=== PATIENT | female | born 1995 | race African-American/Black ===

== ENCOUNTER 2017-04-18 11:13 | Emergency (ER) | payer OTHER ==
[~2017-04-18] VITALS: Ht 167.6 cm; Wt 120.5 kg
[~2017-04-18 11:13] MED LIST: CEFTIN500 MG PO; SINGULAIR; ZYRTEC 10MG10 MG PO
[2017-04-18 11:14] VITALS: TEMP 99
[2017-04-18] MEDS ORDERED: PRENATAL MVI (11:18)
[2017-04-18 11:59] LABS: BASO % 0.3 % (0.0-2.0); EOS # 0.1 (0.0-0.7); EOS % 1.2 % (0-4.0); GRAN # 6.4 (1.4-6.5); GRAN % 73.8 % (42.2-75.2); LYMPH # 1.4 (1.2-3.4); LYMPH % 16.5 % (20.0-51.0); MEAN CELL VOLUME 84 fl (80.0-100.0); MEAN CORPUSCULAR HGB CONC 33 g/dl (33.0-37.0); MEAN PLATELET VOLUME 10.7 fl (7.4-10.4); MONO # 0.7 (0.1-0.6); MONO % 7.9 % (1.7-9.3); PLATELET COUNT 198 K/mm3 (130-400); RED BLOOD COUNT 3.76 M/mm3 (4.10-5.30); WHITE BLOOD COUNT 8.7 K/mm3 (4.8-10.8)
[2017-04-18 12:02] LABS: HEMATOCRIT 31.7 % (37.0-47.0); HEMOGLOBIN 10.5 g/dl (12.5-16.0); MEAN CORPUSCULAR HEMOGLOBIN 28 pg (27.0-31.0)
[2017-04-18 12:04] LABS: ADJUSTED CALCIUM 9.5 mg/dL (8.4-10.2); ALBUMIN 3.5 gm/dL (3.5-5.0); BILIRUBIN,TOTAL 0.3 mg/dL (0.0-1.0); C-REACTIVE PROTEIN 3.8 mg/dL (0.0-0.9); CALCIUM 9.1 mg/dL (8.4-10.2); CREATININE, serum 0.53 mg/dL (0.52-1.25); POTASSIUM 3.6 mmol/L (3.4-5.0); TOTAL PROTEIN 6.8 gm/dL (6.4-8.2)
[2017-04-18 12:19] LABS: COLLECTION METHOD CLEAN CATCH
[2017-04-18 12:44] LABS: PH 8 (5-8); URINE APPEARANCE Hazy; URINE BACTERIA Rare /hpf; URINE BILIRUBIN Negative (NEGATIVE); URINE BLOOD Negative (NEGATIVE); URINE COLOR Yellow; URINE GLUCOSE Negative (NEGATIVE); URINE KETONE Negative (NEGATIVE); URINE LEUKOCYTE ESTERASE Negative (NEGATIVE); URINE PROTEIN(semi-quant) Negative (NEGATIVE); URINE RBC 0-2 /hpf; URINE UROBILINOGEN Negative (NEGATIVE); URINE WBC 0-2 /hpf
[2017-04-18] MEDS ORDERED: AMOXICILLIN 50500 MG PO (14:39)
[2017-04-18] MEDS ORDERED: PHENERGAN 25 TA25 MG PO (14:39)
[2017-04-18 14:46] VITALS: BP 119/67; PULSE 84
== END 2017-04-18 14:49 | disposition home or self-care (01) ==
LOC: COL.ER 11:13
PROVIDERS: Emergency Medicine
DX: O21.9 Vomiting of pregnancy, unspecified (principal); O26.892 Other specified pregnancy related conditions, second trimester; R55 Syncope and collapse; Z3A.23 23 weeks gestation of pregnancy
CPT/HCPCS: J2550; J7030

== ENCOUNTER 2017-06-20 20:16 | Outpatient (CLI) | payer MEDICAID ==
[2017-06-20] VITALS (11 sets, daily range): BP systolic 113–171; BP diastolic 57–88; PULSE 93–111; TEMP 98.1
[~2017-06-20] VITALS: Ht 165.1 cm; Wt 129.1 kg
[~2017-06-20 20:16] MED LIST changes: +AMOXICILLIN 50500 MG PO; +PHENERGAN 25 TA25 MG PO; +PRENATAL MVI
[2017-06-20 21:01] LABS: COLLECTION METHOD CATHETER
[2017-06-20 21:04] LABS: BASO % 0.3 % (0.0-2.0); EOS # 0.1 (0.0-0.7); EOS % 0.5 % (0-4.0); GRAN # 8.6 (1.4-6.5); LYMPH # 2.4 (1.2-3.4); LYMPH % 20.5 % (20.0-51.0); MEAN CELL VOLUME 83 fl (80.0-100.0); MEAN CORPUSCULAR HGB CONC 33 g/dl (33.0-37.0); MEAN PLATELET VOLUME 10.5 fl (7.4-10.4); MONO # 0.6 (0.1-0.6); MONO % 5.3 % (1.7-9.3); PLATELET COUNT 206 K/mm3 (130-400); RED BLOOD COUNT 3.65 M/mm3 (4.10-5.30); REDCELL DISTRIBUTION WIDTH-CV 13.8 % (11.5-14.5)
[2017-06-20 21:06] LABS: HEMATOCRIT 30.4 % (37.0-47.0); HEMOGLOBIN 10.1 g/dl (12.5-16.0); MEAN CORPUSCULAR HEMOGLOBIN 28 pg (27.0-31.0)
[2017-06-20 21:10] LABS: PH 6 (5-8); URINE APPEARANCE Cloudy; URINE BILIRUBIN Negative (NEGATIVE); URINE BLOOD Negative (NEGATIVE); URINE COLOR Yellow; URINE GLUCOSE Negative (NEGATIVE); URINE KETONE Negative (NEGATIVE); URINE LEUKOCYTE ESTERASE Negative (NEGATIVE); URINE NITRATE Negative (NEGATIVE); URINE PROTEIN(semi-quant) Negative (NEGATIVE); URINE UROBILINOGEN Negative (NEGATIVE)
[2017-06-20 21:13] LABS: ALBUMIN 3.5 gm/dL (3.5-5.0); BILIRUBIN,TOTAL 0.2 mg/dL (0.0-1.0); CALCIUM 9.5 mg/dL (8.4-10.2); CREATININE, serum 0.57 mg/dL (0.52-1.25); POTASSIUM 3.5 mmol/L (3.4-5.0); TOTAL PROTEIN 6.7 gm/dL (6.4-8.2)
[2017-06-20 21:26] LABS: AMORPHOUS CRYSTAL Present /uL
[2017-06-20 21:29] LABS: MUCOUS Present /lpf
[2017-06-20 21:31] LABS: URINE BACTERIA Moderate /hpf
[2017-06-20] MEDS ORDERED: MACROBID 1100 MG/CAP PO (21:50)
== END 2017-06-20 22:30 | disposition home or self-care (01) ==
LOC: LDRO 20:16
PROVIDERS: Obstetrics & Gynecology
DX: O99.89 Other specified diseases and conditions complicating pregnancy, childbirth and the puerperium (principal); M54.9 Dorsalgia, unspecified; Z3A.31 31 weeks gestation of pregnancy

== ENCOUNTER 2017-07-19 08:45 | Inpatient (IN) | payer MEDICAID ==
[2017-07-19] VITALS (15 sets, daily range): BP systolic 121–183; BP diastolic 55–91; PULSE 82–112; TEMP 97.9–98.5
[~2017-07-19] VITALS: Ht 165.1 cm; Wt 132.5 kg
[~2017-07-19 08:45] MED LIST changes: +MACROBID 1100 MG/CAP PO
[2017-07-19 10:10] LABS: COLLECTION METHOD CLEAN CATCH
[2017-07-19 10:24] LABS: AMORPHOUS CRYSTAL Present /uL; MUCOUS Present /lpf; PH 7 (5-8); URINE APPEARANCE Cloudy; URINE BACTERIA Rare /hpf; URINE BILIRUBIN Negative (NEGATIVE); URINE BLOOD Negative (NEGATIVE); URINE COLOR Yellow; URINE GLUCOSE Negative (NEGATIVE); URINE KETONE Negative (NEGATIVE); URINE LEUKOCYTE ESTERASE Trace (NEGATIVE); URINE NITRATE Negative (NEGATIVE); URINE PROTEIN(semi-quant) Negative (NEGATIVE); URINE RBC None Seen /hpf; URINE UROBILINOGEN Negative (NEGATIVE)
[2017-07-19 12:04] LABS: BASO % 0.3 % (0.0-2.0); EOS # 0.1 (0.0-0.7); EOS % 0.4 % (0-4.0); GRAN # 10.3 (1.4-6.5); GRAN % 79.5 % (42.2-75.2); LYMPH % 15.2 % (20.0-51.0); MEAN CELL VOLUME 82 fl (80.0-100.0); MEAN CORPUSCULAR HGB CONC 33 g/dl (33.0-37.0); MEAN PLATELET VOLUME 10.9 fl (7.4-10.4); MONO # 0.5 (0.1-0.6); MONO % 4.1 % (1.7-9.3); PLATELET COUNT 200 K/mm3 (130-400); RED BLOOD COUNT 3.91 M/mm3 (4.10-5.30); REDCELL DISTRIBUTION WIDTH-CV 14.2 % (11.5-14.5)
[2017-07-19 12:05] LABS: HEMATOCRIT 32.2 % (37.0-47.0); HEMOGLOBIN 10.6 g/dl (12.5-16.0); MEAN CORPUSCULAR HEMOGLOBIN 27 pg (27.0-31.0)
[2017-07-19 12:20] LABS: ALBUMIN 3.5 gm/dL (3.5-5.0); BILIRUBIN,TOTAL 0.3 mg/dL (0.0-1.0); CALCIUM 10.1 mg/dL (8.4-10.2); CREATININE, serum 0.49 mg/dL (0.52-1.25)
[2017-07-19] MEDS ORDERED: FLEXERIL 1010 MG/TAB PO (14:32)
[2017-07-19] MEDS ORDERED: TRANDATE 200MG200 MG PO (14:33)
[2017-07-19 19:13] LABS: COLLECTION METHOD CLEAN CATCH
[2017-07-19 19:21] LABS: MUCOUS Present /lpf; PH 6 (5-8); URINE APPEARANCE Cloudy; URINE BACTERIA Rare /hpf; URINE BILIRUBIN Negative (NEGATIVE); URINE BLOOD Negative (NEGATIVE); URINE COLOR Yellow; URINE GLUCOSE Negative (NEGATIVE); URINE KETONE 2+ (NEGATIVE); URINE LEUKOCYTE ESTERASE 1+ (NEGATIVE); URINE NITRATE Negative (NEGATIVE); URINE PROTEIN(semi-quant) Negative (NEGATIVE); URINE RBC 0-2 /hpf; URINE UROBILINOGEN Negative (NEGATIVE)
[2017-07-20] VITALS (21 sets, daily range): BP systolic 90–146; BP diastolic 39–80; PULSE 93–119; TEMP 37.3
[2017-07-20 06:19] LABS: COLLECTION METHOD CLEAN CATCH
[2017-07-20 06:26] LABS: MUCOUS Present /lpf; PH 5 (5-8); URINE APPEARANCE Cloudy; URINE BACTERIA Rare /hpf; URINE BILIRUBIN Negative (NEGATIVE); URINE BLOOD Negative (NEGATIVE); URINE COLOR Amber; URINE GLUCOSE Negative (NEGATIVE); URINE KETONE 1+ (NEGATIVE); URINE LEUKOCYTE ESTERASE 1+ (NEGATIVE); URINE NITRATE Negative (NEGATIVE); URINE PROTEIN(semi-quant) 1+ (NEGATIVE); URINE RBC 0-2 /hpf; URINE UROBILINOGEN Negative (NEGATIVE)
[2017-07-20 06:43] LABS: BASO % 0.2 % (0.0-2.0); EOS % 0.1 % (0-4.0); GRAN # 9.9 (1.4-6.5); GRAN % 84.5 % (42.2-75.2); LYMPH # 1.3 (1.2-3.4); MEAN CELL VOLUME 82 fl (80.0-100.0); MEAN CORPUSCULAR HGB CONC 33 g/dl (33.0-37.0); MEAN PLATELET VOLUME 10.9 fl (7.4-10.4); MONO # 0.5 (0.1-0.6); MONO % 3.9 % (1.7-9.3); PLATELET COUNT 199 K/mm3 (130-400); RED BLOOD COUNT 3.87 M/mm3 (4.10-5.30); REDCELL DISTRIBUTION WIDTH-CV 14.4 % (11.5-14.5)
[2017-07-20 06:44] LABS: HEMATOCRIT 31.8 % (37.0-47.0); HEMOGLOBIN 10.5 g/dl (12.5-16.0); MEAN CORPUSCULAR HEMOGLOBIN 27 pg (27.0-31.0)
[2017-07-20 07:10] LABS: ALBUMIN 3.2 gm/dL (3.5-5.0); BILIRUBIN,TOTAL 0.6 mg/dL (0.0-1.0); CALCIUM 9.2 mg/dL (8.4-10.2); CREATININE, serum 0.6 mg/dL (0.52-1.25); TOTAL PROTEIN 6.4 gm/dL (6.4-8.2)
[2017-07-20 09:55] LABS: AMYLASE 510 U/L (30-110)
[2017-07-20 10:13] LABS: LIPASE 6996 U/L (23-300)
[2017-07-21] VITALS (8 sets, daily range): BP systolic 99–143; BP diastolic 55–73; PULSE 113–122; TEMP 98.2–99.4
[2017-07-21 06:50] LABS: BASO % 0.3 % (0.0-2.0); EOS # 0.1 (0.0-0.7); EOS % 0.7 % (0-4.0); GRAN # 9.3 (1.4-6.5); GRAN % 79.8 % (42.2-75.2); LYMPH # 1.7 (1.2-3.4); LYMPH % 14.3 % (20.0-51.0); MEAN CELL VOLUME 84 fl (80.0-100.0); MEAN CORPUSCULAR HGB CONC 32 g/dl (33.0-37.0); MEAN PLATELET VOLUME 10.6 fl (7.4-10.4); MONO # 0.5 (0.1-0.6); MONO % 4.6 % (1.7-9.3); PLATELET COUNT 178 K/mm3 (130-400); RED BLOOD COUNT 3.63 M/mm3 (4.10-5.30); REDCELL DISTRIBUTION WIDTH-CV 14.3 % (11.5-14.5)
[2017-07-21 07:06] LABS: HEMATOCRIT 30.3 % (37.0-47.0); HEMOGLOBIN 9.8 g/dl (12.5-16.0); MEAN CORPUSCULAR HEMOGLOBIN 27 pg (27.0-31.0)
[2017-07-21 07:07] LABS: CALCIUM 8.4 mg/dL (8.4-10.2); CREATININE, serum 0.54 mg/dL (0.52-1.25)
[2017-07-22 04:31] VITALS: BP 135/70; PULSE 105; TEMP 98.4
[2017-07-22 07:31] LABS: BASO % 0.2 % (0.0-2.0); EOS # 0.2 (0.0-0.7); EOS % 1.2 % (0-4.0); GRAN # 10.5 (1.4-6.5); GRAN % 82.4 % (42.2-75.2); LYMPH # 1.3 (1.2-3.4); LYMPH % 10.3 % (20.0-51.0); MEAN CELL VOLUME 83 fl (80.0-100.0); MEAN CORPUSCULAR HGB CONC 33 g/dl (33.0-37.0); MEAN PLATELET VOLUME 10.8 fl (7.4-10.4); MONO # 0.7 (0.1-0.6); MONO % 5.4 % (1.7-9.3); PLATELET COUNT 189 K/mm3 (130-400); RED BLOOD COUNT 3.28 M/mm3 (4.10-5.30); REDCELL DISTRIBUTION WIDTH-CV 14.6 % (11.5-14.5)
[2017-07-22 07:32] LABS: HEMATOCRIT 27.1 % (37.0-47.0); MEAN CORPUSCULAR HEMOGLOBIN 27 pg (27.0-31.0)
[2017-07-22 07:38] LABS: CALCIUM 8.3 mg/dL (8.4-10.2); CREATININE, serum 0.6 mg/dL (0.52-1.25); MAGNESIUM 1.6 mg/dL (1.6-2.3); POTASSIUM 3.6 mmol/L (3.4-5.0)
[2017-07-22 07:41] VITALS: BP 133/63; PULSE 109; TEMP 98.7
[2017-07-22 12:30] VITALS: BP 133/65; PULSE 103; TEMP 97.8
[2017-07-22 16:25] VITALS: BP 141/73; PULSE 105; TEMP 98.3
[2017-07-22 21:30] VITALS: BP 146/82; PULSE 106; TEMP 98
[2017-07-23 00:10] LABS: CALCIUM 8.6 mg/dL (8.4-10.2); CREATININE, serum 0.64 mg/dL (0.52-1.25); POTASSIUM 3.7 mmol/L (3.4-5.0)
[2017-07-23 00:30] VITALS: BP 140/72; PULSE 108; TEMP 99.6
[2017-07-23 04:15] VITALS: BP 140/65; PULSE 107; TEMP 98.7
[2017-07-23 07:01] LABS: BASO % 0.3 % (0.0-2.0); EOS # 0.2 (0.0-0.7); EOS % 1.7 % (0-4.0); GRAN # 10.5 (1.4-6.5); GRAN % 79.4 % (42.2-75.2); LYMPH # 1.8 (1.2-3.4); LYMPH % 13.4 % (20.0-51.0); MEAN CELL VOLUME 83 fl (80.0-100.0); MEAN CORPUSCULAR HGB CONC 33 g/dl (33.0-37.0); MEAN PLATELET VOLUME 10.2 fl (7.4-10.4); MONO # 0.6 (0.1-0.6); MONO % 4.7 % (1.7-9.3); PLATELET COUNT 218 K/mm3 (130-400); RED BLOOD COUNT 3.31 M/mm3 (4.10-5.30); REDCELL DISTRIBUTION WIDTH-CV 14.5 % (11.5-14.5)
[2017-07-23 07:02] LABS: HEMATOCRIT 27.3 % (37.0-47.0); MEAN CORPUSCULAR HEMOGLOBIN 27 pg (27.0-31.0)
[2017-07-23 07:12] LABS: CALCIUM 8.5 mg/dL (8.4-10.2); CREATININE, serum 0.58 mg/dL (0.52-1.25); MAGNESIUM 1.7 mg/dL (1.6-2.3); POTASSIUM 3.7 mmol/L (3.4-5.0)
[2017-07-23 07:45] VITALS: BP 135/73; PULSE 106; TEMP 97.9
[2017-07-23 11:45] VITALS: BP 131/66; PULSE 98; TEMP 98.4
[2017-07-23 16:00] VITALS: BP 145/83; PULSE 102; TEMP 99
[2017-07-23 21:17] VITALS: BP 143/81; PULSE 99; TEMP 98.3
[2017-07-24 01:10] VITALS: BP 141/76; PULSE 101; TEMP 98.8
[2017-07-24 05:35] VITALS: BP 140/71; PULSE 101; TEMP 98.4
[2017-07-24 06:30] VITALS: BP 131/71; PULSE 94; TEMP 98.2
[2017-07-24 16:50] VITALS: BP 147/72; PULSE 97; TEMP 99
[2017-07-24 19:30] VITALS: BP 135/63; PULSE 95; TEMP 98.4
[2017-07-24 23:10] VITALS: BP 135/55; PULSE 94; TEMP 98.7
[2017-07-25 03:10] VITALS: BP 132/67; PULSE 88; TEMP 98.1
[2017-07-25 08:00] VITALS: BP 145/75; PULSE 94; TEMP 98.5
[2017-07-25] MEDS ORDERED: LOPRESSOR HCT 21 TA1 PO (08:47)
[2017-07-25] MEDS ORDERED: IBU600 MG PO (08:48)
[2017-07-25] MEDS ORDERED: PERCOCET 325 MG1 TA2 PO (08:48)
[2017-07-25 10:16] LABS: ALBUMIN 2.9 gm/dL (3.5-5.0); BILIRUBIN,TOTAL 0.3 mg/dL (0.0-1.0); CALCIUM 8.6 mg/dL (8.4-10.2); CREATININE, serum 0.65 mg/dL (0.52-1.25); POTASSIUM 3.1 mmol/L (3.4-5.0); TOTAL PROTEIN 6.2 gm/dL (6.4-8.2)
[2017-07-25 12:00] VITALS: BP 145/79; PULSE 68
[2017-07-25 16:00] VITALS: BP 135/68; PULSE 89
== END 2017-07-25 17:00 | disposition home or self-care (01) | DRG 765 ==
LOC: LDRO 08:45 → LDR 09:20 → LDRO 14:54 → LDR 14:55 → OB 19:34
PROVIDERS: Nurse Practitioner Family; Obstetrics & Gynecology; Physician Assistant; Student in an Organized Health Care Education/Training Program
PROC: 10D00Z1 Extraction of Products of Conception, Low, Open Approach (ICD-10-PCS; principal; 2017-07-20)
DX: O26.62 Liver and biliary tract disorders in childbirth (principal); K85.90 Acute pancreatitis without necrosis or infection, unspecified; O10.92 Unspecified pre-existing hypertension complicating childbirth; O98.311 Other infections with a predominantly sexual mode of transmission complicating pregnancy, first trimester; D62 Acute posthemorrhagic anemia; J90 Pleural effusion, not elsewhere classified; Z68.42 Body mass index [BMI] 45.0-49.9, adult; O34.211 Maternal care for low transverse scar from previous cesarean delivery; N85.8 Other specified noninflammatory disorders of uterus; O99.02 Anemia complicating childbirth; A56.02 Chlamydial vulvovaginitis; O99.214 Obesity complicating childbirth; E66.01 Morbid (severe) obesity due to excess calories; O99.53 Diseases of the respiratory system complicating the puerperium; Z3A.35 35 weeks gestation of pregnancy; Z37.0 Single live birth
CPT/HCPCS: 99222; 99232-AI; A9585; G0378; J0690; J1650; J1885; J1940; J2175; J2270; J2370; J2405; J2590; J3010; J7030; J7120

== ENCOUNTER 2018-05-15 10:09 | Emergency (ER) | payer OTHER ==
[~2018-05-15] VITALS: Ht 167.6 cm; Wt 127.3 kg
[~2018-05-15 10:09] MED LIST changes: +FLEXERIL 1010 MG/TAB PO; +IBU600 MG PO; +LOPRESSOR HCT 21 TA1 PO; +PERCOCET 325 MG1 TA2 PO; +TRANDATE 200MG200 MG PO
[2018-05-15 10:18] VITALS: BP 135/80; TEMP 98.7
[2018-05-15] MEDS ORDERED: MUCINEX D1 TER PO (10:49)
[2018-05-15] MEDS ORDERED: CEPHALEXIN500 M1 PO (10:53)
[2018-05-15 10:59] VITALS: PULSE 80
== END 2018-05-15 11:10 | disposition home or self-care (01) ==
LOC: COL.ER 10:09
DX: O90.0 Disruption of cesarean delivery wound (principal); M25.562 Pain in left knee
CPT/HCPCS: L1846